=== PATIENT | female | born 1970 | race Caucasian/White ===

== ENCOUNTER → 2020-11-04 | Outpatient (CLI) | payer OTHER ==
[~2020-11-04] MED LIST: BIOTIN10000 MC1 PO; CALCIUM + VITA1 EACH PO; CHILDREN'S ASPI81 M1 PO; CLONAZEPAM 0.50.5 M1 PO; DULOXETINE HCL60 MG PO; EZETIMIBE10 MG PO; LEVOTHYROXINE100 MCG PO; LISINOPRIL10 MG PO; ONE-DAILY MULT1 EAC1 PO; PRALUENT P150 MG/1 M SUBQ; PROTONIX40 M2 PO; ROSUVASTATIN CA40 MG PO; STOOL SOFTENER100 MG PO; VITAMIN D3125 MC1 PO
== END ==
LOC: LAB 14:08
PROVIDERS: ATTEND Surgery
DX: Z01.812 Encounter for preprocedural laboratory examination (principal); Z20.822 Contact with and (suspected) exposure to COVID-19

== ENCOUNTER 2020-11-06 09:16 | Observation (INO) | payer OTHER ==
[~2020-11-06] VITALS: Ht 170.2 cm; Wt 104.3 kg
[2020-11-06] VITALS (9 sets, daily range): BP systolic 121–156; BP diastolic 81–106
--- NOTE | ~2020-11-06 | O ---
[facility] [place] [address] OPERATIVE REPORT Name: MERON SOSA Room #: 458-P [facility] Analia Mckinney#: [id number] Admission: 11/06/20 Attend Phys: Tavares Tijerina MD Discharge: 11/07/20 Date of : 70 Report #: [id number] THIS REPORT FOR: cc: ANGEL HERNANDES MD,Tavares Hylton MD, MD ~ DOC #: [id number] cc: Dr. Angel Tijerina MD DATE OF SERVICE: 11/06/2020 PREOPERATIVE DIAGNOSES: 1. Refractory reflux. 2. Hiatal hernia. POSTOPERATIVE DIAGNOSES: 1. Refractory reflux. 2. Hiatal hernia. OPERATIVE PROCEDURE DONE: 1. Laparoscopic repair of hiatal hernia. 2. Laparoscopic partial fundoplication. OPERATING SURGEON: Dr. Tavares Tijerina. DIRECTOR OF FIRST IMPRESSIONS: Sia. INDICATIONS FOR PROCEDURE: The patient is a 49-year-old female who has been troubled by features of severe refractory reflux symptoms for many years. The patient was noted to have features of severe reflux on Nath study and upper GI evaluation also showed a small hiatal hernia. The patient was managed conservatively with the medications; however, she continues to have ongoing symptoms and therefore was advised laparoscopic repair of the hiatal hernia with partial fundoplication. The patient showed understanding and agreed to proceed. DESCRIPTION OF PROCEDURE: After explaining to the patient in detail and informed consent was obtained, the patient was identified in the preoperative holding area, the patient was transferred to the operating room and was placed in supine position. Sequential compressive devices were placed for DVT prophylaxis. Preoperative antibiotics were given. After induction of anesthesia, the abdomen was prepped and draped in a sterile fashion. Through a left upper quadrant 1 cm incision and using Optiview technique, peritoneal cavity was entered and pneumoperitoneum was created, so thereafter, under direct vision, another 5 mm trocar was placed through a left mid abdomen and another 12 mm trocar was placed in the right mid abdomen, another 5 mm trocar was placed in [address] [address] OPERATIVE REPORT Name: NANNETTE SOSATTE Room #: 458-P [facility] Analia Mckinney#: [id number] Admission: 11/06/20 Attend Phys: Tavares Tijerina MD Discharge: 11/07/20 Date of : 70 Report #: [id number] the right subcostal region and through a 1 cm incision in the epigastrium, a Marko retractor was introduced in the left lobe of the liver was retracted. On initial inspection, the patient was noted to have a small 3-4 cm sized hiatal hernia. Using pars flaccida technique, the right nick was identified. The sac was gently dissected off the right nick. Continued dissection anteriorly and then along the left nick. I took down the short gastric vessels. I also mobilized the gastrophrenic ligament and then continued the posterior dissection. I then mobilized the distal esophagus as much as possible. Once adequate mobilization was achieved, I then introduced a 36-[place]st bougie into the esophagus and into the stomach and using the bougie as a guide, I then performed a cruroplasty with a [id number] Ethibond suture posteriorly and a second suture also was placed posteriorly. Care was taken not to tighten the crura too much. I then brought the fundus of the stomach through a retrogastric window to the right side and a shoeshine maneuver was performed. I then performed 270-degree wrap with 3 interrupted gastroesophageal sutures at 1 cm intervals. Absolute hemostasis was ensured. Approximately about 10 mL of lidocaine, Marcaine mix was instilled into the left hemidiaphragm. The 12 mm port site incision was closed with 0 Vicryl. The Marko retractor was removed. The abdomen was deflated. Incisions were then closed with 4-0 Monocryl. Dermabond was applied. The patient was stable at the end of the procedure. The patient was awoken from anesthesia and was transferred to the recovery room in stable condition. ESTIMATED BLOOD LOSS: Approximately 10 mL CONDITION: The patient is stable. FLUIDS GIVEN: Per anesthesia notes. SPECIMEN SENT: None. COMPLICATIONS: None. ANESTHESIA: General anesthesia. Tavares Tijerina MD [facility] By: 1722 Tavares Tijerina MD /nt
--- NOTE | 2020-11-06 17:41 | NUR ---
PATIENT ARRIVED TO UNIT AT APPROXIMATELY 1700. ORIENTED TO ROOM, ON POST OP VS. ICE WATER GIVEN. C/O PAIN AROUND SHOULDER AND ABDOMEN. SPOUSE AT BEDSIDE. FALL PRECAUTIONS IN PLACE
[2020-11-07 07:16] VITALS: BP 146/89
--- NOTE | 2020-11-07 12:09 | NUR ---
ASSUMED PT CARE THIS AM. PT VSS, A&OX4. PATIENT ABLE TO MAKE NEEDS KNOWN. IV PATENT, FLUIDS INFUSING. LAP SITES ON ABDOMEN ARE C/D/I. REPORTED PAIN THIS AM, RESPONDED WELL TO PAIN MEDS GIVEN. PATIENT REMAINS CONTINENT AND ABLE TO AMBULATE TO THE BATHROOM. VISITOR AT BEDSIDE. ON ROOM AIR. REPORTING NO NUMBNESS OR TINGLING. PATIENT ON TELE.
[2020-11-07 15:35] VITALS: BP 146/89
== END 2020-11-07 16:51 | disposition home or self-care (01) ==
LOC: OR 09:16 → TBA 13:55 → OR 14:08 → 4W 16:44 → OR 16:44 → 4W 11-07 16:51
PROVIDERS: ADMIT Surgery; ATTEND Surgery
DX: K21.9 Gastro-esophageal reflux disease without esophagitis (principal); K44.9 Diaphragmatic hernia without obstruction or gangrene; Z88.1 Allergy status to other antibiotic agents
CPT/HCPCS: 50010; 50101; 50386; 50403; 50555; 50558; 51489; 52265; 52266; 53307; 54022; 54118; 55326; 56462; 56525; 56526; 56531; 58574; 58587; 62110; 62900; 70005